=== PATIENT | male | born 1975 | race Caucasian/White ===

== ENCOUNTER → 2020-10-11 | Day surgery (SDC) | payer OTHER ==
[~2020-10-11] MED LIST: AQUACEL1 EACH; CIPRO500 MG PO; DEPAKOTE ER500 MG PO; KEFLEX250 MG PO; NORCO 5-325 TA1 EACH PO; PRILOSEC20 MG PO
== END | disposition home or self-care (01) ==
LOC: FAS 06:47
DX: L73.2 Hidradenitis suppurativa (principal); F17.210 Nicotine dependence, cigarettes, uncomplicated; L98.8 Other specified disorders of the skin and subcutaneous tissue; Z86.69 Personal history of other diseases of the nervous system and sense organs; Z98.890 Other specified postprocedural states; Z87.798 Personal history of other (corrected) congenital malformations; Z20.822 Contact with and (suspected) exposure to COVID-19
CPT/HCPCS: J0690; J1170; J2250; J2405; J2704; J3010; J7120

== ENCOUNTER 2021-02-23 09:08 | Emergency (ER) | payer OTHER ==
[~2021-02-23 09:08] MED LIST changes: -KEFLEX250 MG PO
[2021-02-23 09:32] LABS: BILIRUBIN 1+ mg/dL (NEGATIVE); BLOOD 3+ Ery/uL (NEGATIVE); CLARITY CLOUDY (CLEAR); COLOR RED (YELLOW); GLUCOSE (U) TRACE mg/dL (NORMAL); LEUKOCYTES TRACE Leu/uL (NEGATIVE); NITRITE POSITIVE (NEGATIVE); PROTEIN 3+ mg/dL (NEGATIVE)
[2021-02-23 09:38] LABS: URINARY RBC TNTC
[2021-02-23 10:40] LABS: BASOPHIL 0.7 % (0-2); EOSINOPHIL 0.6 % (0-5); HCT 37.7 % (42.0-52.0); HGB 12.8 g/dl (13.2-18.0); LYMPHOCYTE 14.9 % (15-48); MCH 31.1 pg (25.0-31.0); MCV 91.7 fL (78.0-100.0); MONOCYTE 9.4 % (0-12); MPV 9.4 fL (6.0-9.5); NRBC 0; PLT 532 K/uL (150-400); RBC 4.11 M/uL (4.70-6.00); RDW 12.5 % (11.5-14.0); WBC 13.7 K/uL (4.0-10.5)
[2021-02-23 10:58] LABS: CREATININE 0.87 mg/dL (0.67-1.17); POTASSIUM 3.9 mmol/L (3.5-5.1); TOTAL PROTEIN 7.3 g/dL (6.4-8.2)
[2021-02-23 10:59] LABS: BILIRUBIN - TOTAL 0.2 mg/dL (0.2-1.0); GLOBULIN (CALCULATION) 4.3 g/dL
[2021-02-23] MEDS ORDERED: KEFLEX250 MG PO (10:59)
== END 2021-02-23 11:40 | disposition home or self-care (01) ==
LOC: FER 09:08
PROVIDERS: Emergency Medicine
DX: N39.0 Urinary tract infection, site not specified (principal); F17.200 Nicotine dependence, unspecified, uncomplicated
CPT/HCPCS: 36415; 80053; 81001; 85025; 87088